=== PATIENT | female | born 1945 | race Caucasian/White ===

== ENCOUNTER 2022-11-18 18:33 | Inpatient (IN) | payer OTHER, MEDICARE ==
--- NOTE | 2022-11-18 19:38 | ED ---
General Adult HPI - General Chief complaint: Fall Stated complaint: fall Time Seen by Provider: 11/18/22 18:40 Source: patient, EMS, RN notes reviewed, old records reviewed Mode of arrival: EMS Limitations: no limitations - History of Present Illness Initial comments: This is a 69-year-old female presents emergency Department after she fell off the toilet. Patient states she went to go to the bathroom and sit down on the toilet she thought she was up but it was not and so she slid off the toilet between the tub in the toilet. Patient states she was caught there for about 8 hours and couldn't move. Patient's only complaint is right sided rib pains. Patient denies being on any blood thinners. Patient denies hitting her head or neck. Patient denies any difficulty breathing shortness of breath. Patient denies any extremity pain. Patient states she did note bruise on her right upper arm but she has full range of motion at all joints. - Related Data Home Medications Medication Instructions Recorded Confirmed FLUoxetine HCL [Sarafem] 20 mg PO DAILY 11/06/15 11/06/15 Ranitidine HCl 75 mg PO DAILY PRN 11/06/15 11/06/15 Previous Rx's Medication Instructions Recorded Aspirin EC [Ecotrin Low Dose] 81 mg PO DAILY #30 tablet. 11/09/15 Cephalexin [Keflex] 500 mg PO Q8HR #21 cap 11/09/15 Allergies Allergy/AdvReac Type Severity Reaction Status Date / Time Latex, Natural Rubber Allergy Rash/Hives Verified 11/18/22 18:41 janina Allergy Rash/Hives Verified 11/18/22 18:42 Review of Systems ROS Statement: Those systems with pertinent positive or pertinent negative responses have been documented in the HPI. ROS Other: All systems not noted in ROS Statement are negative. Past Medical History Past Medical History: Hypertension, Memory Impairment History of Any Multi-Drug Resistant Organisms: None Reported Past Surgical History: Cholecystectomy Additional Past Surgical History / Comment(s): 1979 Past Psychological History: Depression Smoking Status: Never smoker Past Alcohol Use History: None Reported Past Drug Use History: None Reported - Past Family History Mother Family Medical History: Congestive Heart Failure (CHF), COPD, Coronary Artery Disease (CAD), Hypertension, Myocardial Infarction ([place]), Neurologic Disorder General Exam - General Exam Comments Initial Comments: GENERAL: Patient is well-developed and well-nourished. Patient is nontoxic and well- hydrated and is in mild distress. ENT: Neck is soft and supple. No significant lymphadenopathy is noted. Oropharynx is clear. Moist mucous membranes. Neck has full range of motion without eliciting any pain. EYES: The sclera were anicteric and conjunctiva were pink and moist. Extraocular movements were intact and pupils were equal round and reactive to light. Eyelids were unremarkable. PULMONARY: Unlabored respirations. Good breath sounds bilaterally. No audible rales rhonchi or wheezing was noted. CARDIOVASCULAR: There is a regular rate and rhythm without any murmurs gallops or rubs. Patient has right lateral rib pain ABDOMEN: Soft and nontender with normal bowel sounds. SKIN: Contusion to the lateral upper right arm NEUROLOGIC: Patient is alert and oriented x3. Cranial nerves II through XII are grossly intact. Motor and sensory are also intact. Normal speech, volume and content. Symmetrical smile MUSCULOSKELETAL: Normal extremities with adequate strength and full range of motion. LYMPHATICS: No significant lymphadenopathy is noted PSYCHIATRIC: Normal psychiatric evaluation. Limitations: no limitations Course Vital Signs 11/18/22 11/18/22 18:37 20:33 Temperature 98 F Pulse Rate 86 85 Respiratory 20 16 Rate Blood Pressure 168/97 184/89 O2 Sat by Pulse 98 99 Oximetry Medical Decision Making - Medical Decision Making Was pt. sent in by a medical professional or institution (LUIS Douglas, SHREDDER/GRANULATOR OPERATOR, urgent care, hospital, or fci...) When possible be specific @ -No Did you speak to anyone other than the patient for history (EMS, parent, family, police, friend...)? What history was obtained from this source @ -No Did you review nursing and triage notes (agree or disagree)? Why? @ -I reviewed and agree with nursing and triage notes Were old charts reviewed (outside hosp., previous admission, EMS record, old EKG, old radiological studies, urgent care reports/EKG's, fci records)? Report findings @ -No old charts were reviewed Differential Diagnosis (chest pain, altered mental status, abdominal pain women, abdominal pain men, vaginal bleeding, weakness, fever, dyspnea, syncope, headache, dizziness, GI bleed, back pain, seizure, CVA, palpatations, mental health, musculoskeletal)? @ -Differential Musculoskeletal Muscular strain, contusion, ligament sprain, fracture, arthritis, septic arthritis, bursitis, cellulitis, muscle spasm, nerve compression, DVT, arterial occlusion, herpes zoster, electrolyte abnormality, tumor.... This is not meant to be in all inclusive list EKG interpreted by me (3pts min.). @ -As above X-rays interpreted by me (1pt min.). @ -Chest x-ray and rib films were interpreted by myself as he for rib fractures rib 5 rib 7 [address] interpreted by me (1pt min.). @ -None done U/S interpreted by me (1pt. min.). @ -None done What testing was considered but not performed or refused? (CT, X-rays, U/S, labs)? Why? @ -None What meds were considered but not given or refused? Why? @ -None Did you discuss the management of the patient with other professionals (professionals i.e. , PA, SHREDDER/GRANULATOR OPERATOR, lab, RT, psych nurse, transition social worker, produce laborer, teacher, resident medical officer, hospice case manager)? Give summary @ -I discussed the case with Dr. Gennaro Styles he agreed to admit the patient I would admit the patient I will consult anesthesia pulmonary and medical doctor Was smoking cessation discussed for >3mins.? @ -No Was critical care preformed (if so, how long)? @ -No Were there social determinants of health that impacted care today? How? (Homelessness, low income, unemployed, alcoholism, drug addiction, transportation, low edu. Level, literacy, decrease access to med. care, [facility] [facility], rehab)? @ -No Was there de-escalation of care discussed even if they declined (Discuss DNR or withdrawal of care, Hospice)? DNR status @ -No What co-morbidities impacted this encounter? (DM, HTN, Smoking, COPD, CAD, Cancer, CVA, ARF, Chemo, Hep., AIDS, mental health diagnosis, sleep apnea, morbid obesity)? @ -None Was patient admitted / discharged? Hospital course, mention meds given and route, prescriptions, significant lab abnormalities, going to OR and other pertinent info. @ -Multiple rib fractures were seen on the x-ray patient was in too much pain to go home I spoke with Dr. Duffy agreed to admit the patient minute the patient wrote admitting orders I consulted anesthesia pulmonary and Lluvia Undiagnosed new problem with uncertain prognosis? @ -No Drug Therapy requiring intensive monitoring for toxicity (Heparin, Nitro, Insulin, Cardizem)? @ -No Were any procedures done? @ -No Diagnosis/symptom? @ -Multiple rib fractures Acute, or Chronic, or Acute on Chronic? @ -Acute Uncomplicated (without systemic symptoms) or Complicated (systemic symptoms)? @ -Complicated Side effects of treatment? @ -No Exacerbation, Progression, or Severe Exacerbation? @ -No Poses a threat to life or bodily function? How? (Chest pain, [place], [place], pneumonia, PE, COPD, DKA, ARF, appy, cholecystitis, CVA, Diverticulitis, Homicidal, Suicidal, threat to staff... and all critical care pts) @ -No - Lab Data Result diagrams: 11/18/22 20:23 Lab Results 11/18/22 Range/Units 20:23 WBC 18.8 H (3.8-10.6) k/uL RBC 4.13 (3.80-5.40) m/uL Hgb 12.1 (11.4-16.0) gm/dL Hct 35.2 (34.0-46.0) % MCV 85.3 (80.0-100.0) fL MCH 29.3 (25.0-35.0) pg MCHC 34.3 (31.0-37.0) g/dL RDW 16.4 H (11.5-15.5) % Plt Count 254 (150-450) k/uL MPV 7.3 Neutrophils % 93 % Lymphocytes % 3 % Monocytes % 3 % Eosinophils % 0 % Basophils % 0 % Neutrophils # 17.5 H (1.3-7.7) k/uL Lymphocytes # 0.6 L (1.0-4.8) k/uL Monocytes # 0.6 (0-1.0) k/uL Eosinophils # 0.0 (0-0.7) k/uL Basophils # 0.0 (0-0.2) k/uL Poikilocytosis Slight Anisocytosis Slight Disposition Clinical Impression: Fall, Rib fractures Disposition: ADMITTED IP TO THIS HOSP Referrals: Shanti Pizarro DO [Primary Care Provider] - 1-2 days Time of Disposition: 20:54
[2022-11-18] MEDS ORDERED: HYDROmorphone 0.5 MG/0.5 ML SYRINGE IVP STA (20:14)
--- NOTE | 2022-11-18 20:18 | XR ---
EXAMINATION TYPE: XR ribs RT w pa chest xray DATE OF EXAM: 11/18/2022 8:08 PM INDICATION: Patient age:Female; 77 years old; Reason for study: Trauma; COMPARISON: 11/06/2015 TECHNIQUE: Frontal and oblique views of the right ribs with frontal chest radiograph. FINDINGS: Right lateral rib #5 cortical irregularity. Additional mildly displaced fracture seen throu gh right rib 7 through 9. Right midlung versus subcutaneous calcified granuloma present.. Increased i nterstitial lung markings throughout the lungs. IMPRESSION: 1. Multiple right-sided rib fractures including at least 5 and and was thought to be 7 through 9. 2. Underlying pulmonary fibrosis changes.
[2022-11-18 20:35] LABS: Anisocytosis Slight; Basophils % (A) 0 %; Eosinophils % (A) 0 %; HCT 35.2 % (34.0-46.0); HGB 12.1 gm/dL (11.4-16.0); Lymphocytes # (A) 0.6 k/uL (1.0-4.8); Lymphocytes % (A) 3 %; MCH 29.3 pg (25.0-35.0); MCHC 34.3 g/dL (31.0-37.0); MCV 85.3 fL (80.0-100.0); Mean Platelet Volume 7.3; Monocytes # (A) 0.6 k/uL (0-1.0); Monocytes % (A) 3 %; Neutrophils # (A) 17.5 k/uL (1.3-7.7); Neutrophils % (A) 93 %; Platelet Count 254 k/uL (150-450); Poikilocytosis Slight; RBC 4.13 m/uL (3.80-5.40); RDW 16.4 % (11.5-15.5); WBC 18.8 k/uL (3.8-10.6)
[2022-11-18 20:58] LABS: ALT 37 U/L (4-34); AST 79 U/L (14-36); African American GFR (CKD) >90 (>60 ml/min/1.73 sqM); Albumin 4.1 g/dL (3.5-5.0); Alkaline Phosphatase 104 U/L (38-126); Anion Gap 12 mmol/L; Blood Urea Nitrogen 20 mg/dL (7-17); Calcium 9.2 mg/dL (8.4-10.2); Carbon Dioxide 24 mmol/L (22-30); Chloride 105 mmol/L (98-107); Glucose 130 mg/dL (74-99); Non-African American GFR(CKD) 87 (>60 ml/min/1.73 sqM); Potassium 3.3 mmol/L (3.5-5.1); Sodium 141 mmol/L (137-145); Total Bilirubin 0.7 mg/dL (0.2-1.3); Total Protein 6.9 g/dL (6.3-8.2)
[2022-11-18] MEDS ORDERED: NALOXONE 0.4 MG/ML 1 ML VIAL IV PRN (20:58)
[2022-11-18 21:15] LABS: Creatine Kinase 1532 U/L (30-135)
[2022-11-18] MEDS ORDERED: SODIUM CHLORIDE 0.9% 1,000 ML IV ONE (21:29)
[2022-11-18] MEDS: MORPHINE SULFATE 2 MG/ML SYRINGE IVP PRN (23:25)
--- NOTE | 2022-11-19 03:26 | P.CNPUL ---
History of Present Illness Consult date: 11/19/22 Requesting physician: Casey Coker Reason for consult: abnormal CXR/CT, other Chief complaint: Fall with rib fracture History of present illness: I'm seeing this patient today 11/19/2022 in new consultation after a fall resulting in multiple rib fractures. This is a pleasant 77-year-old white female with past medical history of CHF, coronary artery disease, previous heart attack, hypertension. Patient denies any significant pulmonary history, and denies ever smoking. The patient states that while she was attempting to go to the bathroom and sit on the toilet she fell hitting her right chest on the edge of the bathtub. She states that she was trapped between the tub and toilet from 10 AM to 6 PM. She arrived in the emergency room yesterday evening. Patient's only complaint right now is right-sided chest pain. She denies any significant shortness of breath. Not on any anticoagulants. Chest x-ray done on arrival, showed multiple rib fractures including a right lateral fifth rib, and mildly displaced right ribs 7 through 9. No pneumothorax was seen. There were also some underlying interstitial lung markings seen throughout. Patient is currently sitting up in the bed, on room air, in no acute distress. Pain appears adequately controlled with when necessary IV morphine and Toradol. CBC on arrival showed an elevated WBC count of 18.8, hemoglobin 12.1, hematocrit 35.2, platelets 254,000. Patient's BMP on arrival shows sodium 141, potassium 3.1, chloride 105, serum CO2 24, BUN 20, creatinine 0.62, glucose 130. Patient's CK was mildly elevated 1532. She currently has normal saline infusing at 100 ML's per hour. Vital signs are stable. Review of Systems REVIEW OF SYSTEMS: CONSTITUTIONAL: Denies any recent significant weight loss or weight gain. EYES: Denies change in vision. EARS, NOSE, MOUTH, THROAT: Denies headaches, denies sore throat. CARDIOVASCULAR: Denies palpitations or syncopal episodes. Admits right lateral chest pain. RESPIRATORY: Denies shortness of breath, cough, congestion or hemoptysis. GASTROINTESTINAL: Denies change in appetite, abdominal pain, nausea and vomiting, or diarrhea GENITOURINARY: Denies hematuria, denies infections. MUSKULOSKELETAL: Denies pain, denies swelling. INTEGUMENTARY: Denies rash, denies eczema. NEUROLOGICAL: Denies recent memory loss, no recent seizure activity. PSYCHIATRIC: Denies anxiety, denies depression. HEMATOLOGIC/LYMPHATIC: Denies anemia, denies enlarged lymph node Past Medical History Past Medical History: Hypertension, Memory Impairment History of Any Multi-Drug Resistant Organisms: None Reported Past Surgical History: Cholecystectomy Additional Past Surgical History / Comment(s): 1979 Past Psychological History: Depression Smoking Status: Never smoker Past Alcohol Use History: None Reported Past Drug Use History: None Reported - Past Family History Mother Family Medical History: Congestive Heart Failure (CHF), COPD, Coronary Artery Disease (CAD), Hypertension, Myocardial Infarction ([place]), Neurologic Disorder Medications and Allergies Home Medications Medication Instructions Recorded Confirmed Type Ergocalciferol (Vitamin D2) 1,250 mcg PO WEEKLY 11/18/22 11/18/22 History [Drisdol (50,000 Iu)] FLUoxetine HCL [PROzac] 40 mg PO DAILY 11/18/22 11/18/22 History busPIRone HCL 5 mg PO BID 11/18/22 11/18/22 History timoloL maleate [timoloL maleate 1 applic BOTH EYES DAILY 11/18/22 11/18/22 History 0.25%] Allergies Allergy/AdvReac Type Severity Reaction Status Date / Time Latex, Natural Rubber Allergy Rash/Hives Verified 11/18/22 21:02 janina Allergy Rash/Hives Verified 11/18/22 21:02 Physical Exam Vitals: Vital Signs Temp Pulse Resp BP Pulse Ox 11/18/22 20:33 98 F 85 16 184/89 99 11/18/22 18:37 86 20 168/97 98 Intake and Output 11/18/22 11/18/22 11/19/22 14:59 22:59 06:59 Other: Weight 107.501 kg GENERAL EXAM: Alert, 77-year-old white female, morbidly obese, comfortable in no apparent distress. HEAD: Normocephalic and atraumatic EYES: Normal reaction of pupils, equal size. NOSE: Clear with pink turbinates. THROAT: No erythema or exudates. NECK: No masses, no JVD. CHEST: No chest wall deformity. There is some obvious ecchymosis of the right lateral chest, and grimacing to palpation. LUNGS: Equal air entry with no crackles, wheeze, rhonchi or dullness. On room air. No conversational dyspnea or accessory muscle use.. CVS: S1 and S2 normal with no audible murmur, regular rhythm. No extra heart sounds ABDOMEN: No hepatosplenomegaly, active bowel sounds, no guarding or rigidity. SPINE: No scoliosis or deformity SKIN: No rashes CENTRAL NERVOUS SYSTEM: No focal deficits, tone is normal in all 4 extremities. EXTREMITIES: There is no peripheral edema, clubbing, or cyanosis. Peripheral pulses are intact. Results - Laboratory Findings CBC and BMP: 11/18/22 20:23 11/18/22 20:23 Abnormal lab findings: Abnormal Labs 11/18/22 11/18/22 11/18/22 20:23 20:23 21:54 WBC 18.8 H RDW 16.4 H Neutrophils # 17.5 H Lymphocytes # 0.6 L Potassium 3.3 L BUN 20 H Glucose 130 H Plasma Lactic Acid Tadeo 2.6 H* AST 79 H ALT 37 H Creatine Kinase 1532 H* - Diagnostic Findings Chest x-ray: image reviewed Assessment and Plan Assessment: Fall resulting in multiple acute right sided rib fractures including the fifth and seventh through ninth ribs Rhabdomyolysis with a mildly elevated CK of 1532. Hypertension Coronary artery disease Never smoker. Plan: Patient's medications, labs, chest x-ray reviewed On room air Pain management Encourage incentive spirometer Continue IV hydration with normal saline, renal function is stable Increase activity as tolerated Anticipate discharge in the next 24 hours We will continue to follow I have personally seen and examined the patient, performed the documentation and the assessment and plan as written. Number of minutes spent on the visit:20 Time with Patient: Greater than 30
[2022-11-19] MEDS: MORPHINE SULFATE 2 MG/ML SYRINGE IVP PRN ×2 (04:26→13:56)
[2022-11-19] MEDS: SODIUM CHLORIDE 0.9% 1,000 ML IV SCH ×3 (04:59→18:03)
[2022-11-19 07:06] LABS: Anisocytosis Slight; Basophils % (A) 0 %; Eosinophils % (A) 0 %; HCT 33.8 % (34.0-46.0); HGB 11.2 gm/dL (11.4-16.0); Lymphocytes # (A) 0.5 k/uL (1.0-4.8); Lymphocytes % (A) 4 %; MCH 28.6 pg (25.0-35.0); MCHC 33.2 g/dL (31.0-37.0); MCV 86.1 fL (80.0-100.0); Mean Platelet Volume 7.5; Monocytes # (A) 0.5 k/uL (0-1.0); Monocytes % (A) 4 %; Neutrophils # (A) 12.1 k/uL (1.3-7.7); Neutrophils % (A) 91 %; Platelet Count 208 k/uL (150-450); Poikilocytosis Slight; RBC 3.93 m/uL (3.80-5.40); RDW 16.5 % (11.5-15.5); WBC 13.2 k/uL (3.8-10.6)
--- NOTE | 2022-11-19 07:49 | XR ---
EXAMINATION TYPE: XR chest 1V DATE OF EXAM: 11/19/2022 COMPARISON: 11/18/2022 HISTORY: Pain TECHNIQUE: Single frontal view of the chest is obtained. FINDINGS: Fractures not well seen in standard x-ray techniques. Hypertrophic arthropathy of the shou lders. Heart size normal with no obvious pneumothorax or consolidation. Left pleural effusion. IMPRESSION: COPD. No sizable pneumothorax. Right-sided rib fractures recently reported are poorly se en by standard x-ray.
[2022-11-19] MEDS: LIDOCAINE 5% PATCH TOPICAL SCH (08:42)
[2022-11-19 09:11] LABS: ALT 36 U/L (4-34); AST 67 U/L (14-36); African American GFR (CKD) >90 (>60 ml/min/1.73 sqM); Albumin 3.7 g/dL (3.5-5.0); Albumin/Globulin Ratio 1.4; Alkaline Phosphatase 93 U/L (38-126); Anion Gap 12 mmol/L; Blood Urea Nitrogen 17 mg/dL (7-17); Calcium 8.5 mg/dL (8.4-10.2); Carbon Dioxide 25 mmol/L (22-30); Chloride 102 mmol/L (98-107); Globulin 2.6 g/dL; Glucose 111 mg/dL (74-99); Non-African American GFR(CKD) 89 (>60 ml/min/1.73 sqM); Potassium 3.6 mmol/L (3.5-5.1); Sodium 139 mmol/L (137-145); Total Bilirubin 0.6 mg/dL (0.2-1.3); Total Protein 6.3 g/dL (6.3-8.2)
[2022-11-19] MEDS: KETOROLAC 15 MG/ML 1 ML VIAL IVP PRN ×2 (09:16→17:39)
[2022-11-19] MEDS: busPIRone HCl 5 MG TAB PO SCH ×2 (09:18→22:57)
[2022-11-19] MEDS ORDERED: ENOXAPARIN 100 MG/ML SYRINGE SQ SCH (09:45)
[2022-11-19] MEDS: FLUoxetine HCL 20 MG CAP PO SCH (12:12)
[2022-11-19] MEDS: ENOXAPARIN 40 MG/0.4 ML SYRINGE SQ SCH (12:17)
[2022-11-19] MEDS: PANTOPRAZOLE 40 MG/10 ML VIAL IVP SCH (12:17)
--- NOTE | 2022-11-19 12:34 | P.GSHP ---
History of Present Illness H&P Date: 11/19/22 CHIEF COMPLAINT: Fall HISTORY OF PRESENT ILLNESS: This is a 77-year-old female who percent ER after a fall at home. Apparently she fell from the toilet seat and landed between the bathtub and the toilet. Patient was stuck there for about 8 hours and couldn't move. Patient complains of right-sided rib pain. She denies shortness of breath. Denies any abdominal pain. Denies any nausea or vomiting. She had x- ray completed that showed evidence of right-sided rib fractures 5 and 7 through 9. She also has evidence of acute rhabdomyolysis. She reports her pain is controlled. She denies any loss of consciousness. She denies hitting her head. Patient was seen and examined in the ER with Dr. Burdikc. PAST MEDICAL HISTORY: Hypertension, memory impairment PAST SURGICAL HISTORY: Cholecystectomy MEDICATIONS: See below ALLERGIES: See below SOCIAL HISTORY: No illicit drug use. REVIEW OF SYSTEMS: CONSTITUTIONAL: Denies fever or chills. HEENT: Denies blurred vision, vision changes, or eye pain. Denies hemoptysis CARDIOVASCULAR: Denies chest pain or pressure. RESPIRATORY: No shortness of breath. GASTROINTESTINAL: See HPI for pertinent findings HEMATOLOGIC: Denies bleeding disorders. GENITOURINARY: Denies any blood in urine or increased urinary frequency. SKIN: Denies pruitis. Denies rash. PHYSICAL EXAM: VITAL SIGNS: Reviewed GENERAL: Well-developed in no acute distress. HEENT: No sclera icterus. Extraocular movements grossly intact. Moist buccal mucosa. Head is atraumatic, normocephalic. No nasal drainage. ABDOMEN: Soft. Obese. Nondistended. Nontender NEUROLOGIC: Alert and oriented. Cranial nerves II through XII grossly intact. LABORATORY DATA: WBC 18.8 down to 13.2 Hgb 11.2 platelets 208 Sodium 139 potassium 3.3-3.6 creatinine 0.57 Glucose 111 Lactic acid 2.6 up to 3.7 with a repeat of 1.2 Total bilirubin 0.6 AST 79 down to 67 ALT 37-36 CPK [id number] IMAGING: Rib and chest x-ray shows multiple right-sided rib fractures including at least 5 and 7 through 9. Underlying pulmonary fibrosis changes. Repeat chest x-ray for this morning shows a COPD. No sizable pneumothorax. Right-sided rib fractures recently reported are poorly seen by standard extra ASSESSMENT: 1. Fall with trauma to right ribs 2. Right-sided rib fractures including ribs 5 and 7 through 9 3. Acute rhabdomyolysis due to fall and prolonged time on ground 4. Elevated lactic acid level PLAN: -Continue supportive care -Continue IV fluids -Continue pain management -Pulmonary service consulted due to rib fractures -Consult medical service for medical management -Pain service consulted -Lidoderm patch and Halls added for pain control -Encouraged patient to use incentive spirometer -Consult PT OT -Consult oil field caser for possible ECF placement -GI prophylaxis Protonix and DVT prophylaxis Lovenox Physician Poultry Process Worker note has been reviewed by physician. Signing provider agrees with the documented findings, assessment, and plan of care. Past Medical History Past Medical History: Hypertension, Memory Impairment History of Any Multi-Drug Resistant Organisms: None Reported Past Surgical History: Cholecystectomy Additional Past Surgical History / Comment(s): 1979 Past Psychological History: Depression Smoking Status: Never smoker Past Alcohol Use History: None Reported Past Drug Use History: None Reported - Past Family History Mother Family Medical History: Congestive Heart Failure (CHF), COPD, Coronary Artery Disease (CAD), Hypertension, Myocardial Infarction ([place]), Neurologic Disorder Medications and Allergies Home Medications Medication Instructions Recorded Confirmed Type Ergocalciferol (Vitamin D2) 1,250 mcg PO WEEKLY 11/18/22 11/18/22 History [Drisdol (50,000 Iu)] FLUoxetine HCL [PROzac] 40 mg PO DAILY 11/18/22 11/18/22 History busPIRone HCL 5 mg PO BID 11/18/22 11/18/22 History timoloL maleate [timoloL maleate 1 applic BOTH EYES DAILY 11/18/22 11/18/22 History 0.25%] Allergies Allergy/AdvReac Type Severity Reaction Status Date / Time Latex, Natural Rubber Allergy Rash/Hives Verified 11/18/22 21:02 janina Allergy Rash/Hives Verified 11/18/22 21:02 Surgical - Exam Vital Signs Pulse Resp BP Pulse Ox 86 20 168/97 98 11/18/22 18:37 11/18/22 18:37 11/18/22 18:37 11/18/22 18:37 Results - Labs 11/19/22 06:15 11/19/22 06:15 Abnormal Lab Results - Last 24 Hours (Table) 11/18/22 11/18/22 11/18/22 Range/Units 20:23 20:23 21:54 WBC 18.8 H (3.8-10.6) k/uL Hgb (11.4-16.0) gm/dL Hct (34.0-46.0) % RDW 16.4 H (11.5-15.5) % Neutrophils # 17.5 H (1.3-7.7) k/uL Lymphocytes # 0.6 L (1.0-4.8) k/uL Potassium 3.3 L (3.5-5.1) mmol/L BUN 20 H (7-17) mg/dL Glucose 130 H (74-99) mg/dL Plasma Lactic Acid Tadeo 2.6 H* (0.7-2.0) mmol/L AST 79 H (14-36) U/L ALT 37 H (4-34) U/L Creatine Kinase 1532 H* (30-135) U/L 11/19/22 11/19/22 11/19/22 Range/Units 02:55 06:15 06:15 WBC 13.2 H (3.8-10.6) k/uL Hgb 11.2 L (11.4-16.0) gm/dL Hct 33.8 L (34.0-46.0) % RDW 16.5 H (11.5-15.5) % Neutrophils # 12.1 H (1.3-7.7) k/uL Lymphocytes # 0.5 L (1.0-4.8) k/uL Potassium (3.5-5.1) mmol/L BUN (7-17) mg/dL Glucose (74-99) mg/dL Plasma Lactic Acid Tadeo 2.1 H* 3.7 H* (0.7-2.0) mmol/L AST (14-36) U/L ALT (4-34) U/L Creatine Kinase (30-135) U/L 11/19/22 11/19/22 Range/Units 06:15 07:18 WBC (3.8-10.6) k/uL Hgb (11.4-16.0) gm/dL Hct (34.0-46.0) % RDW (11.5-15.5) % Neutrophils # (1.3-7.7) k/uL Lymphocytes # (1.0-4.8) k/uL Potassium (3.5-5.1) mmol/L BUN (7-17) mg/dL Glucose 111 H (74-99) mg/dL Plasma Lactic Acid Tadeo (0.7-2.0) mmol/L AST 67 H (14-36) U/L ALT 36 H (4-34) U/L Creatine Kinase 1387 H* (30-135) U/L Diabetes panel 11/18/22 11/19/22 Range/Units 20: 06:15 Sodium 141 139 (137-145) mmol/L Potassium 3.3 L 3.6 (3.5-5.1) mmol/L Chloride 105 102 (98-107) mmol/L Carbon Dioxide 24 25 (22-30) mmol/L BUN 20 H 17 (7-17) mg/dL Creatinine 0.62 0.57 (0.52-1.04) mg/dL Glucose 130 H 111 H (74-99) mg/dL Calcium 9.2 8.5 (8.4-10.2) mg/dL AST 79 H 67 H (14-36) U/L ALT 37 H 36 H (4-34) U/L Alkaline Phosphatase 104 93 (38-126) U/L Total Protein 6.9 6.3 (6.3-8.2) g/dL Albumin 4.1 3.7 (3.5-5.0) g/dL Calcium panel 11/18/22 11/19/22 Range/Units 20: 06:15 Calcium 9.2 8.5 (8.4-10.2) mg/dL Albumin 4.1 3.7 (3.5-5.0) g/dL Pituitary panel 11/18/22 11/19/22 Range/Units 20: 06:15 Sodium 141 139 (137-145) mmol/L Potassium 3.3 L 3.6 (3.5-5.1) mmol/L Chloride 105 102 (98-107) mmol/L Carbon Dioxide 24 25 (22-30) mmol/L BUN 20 H 17 (7-17) mg/dL Creatinine 0.62 0.57 (0.52-1.04) mg/dL Glucose 130 H 111 H (74-99) mg/dL Calcium 9.2 8.5 (8.4-10.2) mg/dL Adrenal panel 11/18/22 11/19/22 Range/Units 20:23 06:15 Sodium 141 139 (137-145) mmol/L Potassium 3.3 L 3.6 (3.5-5.1) mmol/L Chloride 105 102 (98-107) mmol/L Carbon Dioxide 24 25 (22-30) mmol/L BUN 20 H 17 (7-17) mg/dL Creatinine 0.62 0.57 (0.52-1.04) mg/dL Glucose 130 H 111 H (74-99) mg/dL Calcium 9.2 8.5 (8.4-10.2) mg/dL Total Bilirubin 0.7 0.6 (0.2-1.3) mg/dL AST 79 H 67 H (14-36) U/L ALT 37 H 36 H (4-34) U/L Alkaline Phosphatase 104 93 (38-126) U/L Total Protein 6.9 6.3 (6.3-8.2) g/dL Albumin 4.1 3.7 (3.5-5.0) g/dL
[2022-11-19] MEDS: TIMOLOL 0.25% OPHTH DROPS 5 ML BTL BOTH EYES SCH (12:45)
[2022-11-19] MEDS ORDERED: Potassium Replacement Protocol 1 EACH MISC MISCELLANE PRN (14:47)
--- NOTE | 2022-11-19 14:51 | P.CONS ---
History of Present Illness - Reason for Consult Consult date: 11/19/22 Medical management hypertension Requesting physician: Bill Burdick - Chief Complaint Fall, right-sided rib pain - History of Present Illness This is a 77-year-old female with morbid obesity, past medical history of hypertension, memory impairment and multiple others brought into the ER. EMS status post fall. Patient reports she was wearing her polyester pants, and the toilet lid was down; she dropped something attempted to reach over to pick it up and slid off the toilet. She fell between the toilet and the tub, hitting her right shoulder and ribs. Denies head trauma. Reports she was down for approximately 8 hours. CK 1532, decreased to 1387 with IV fluid hydration. Denies chest pain, palpitations or shortness of breath. Denies cough or congestion. Reports she has "mobility issues". States 10 years ago she sustained a significant fall, landing on her back and has had multiple falls since then. Reports she uses a walker. Afebrile, maintaining O2 sats in the high 90s to 100% on room air. WBC 18.8, decreases 13.2, hemoglobin 11.2, platelets 208, sodium 139, potassium 3.6, bicarb 25 BUN 17, creatinine 0.57. Blood sugars controlled. Lactic acid 2.6, 2.1, 3.7 and currently down to 1.2. T bili 0.6, AST 67, ALT 36. Review of Systems ROS Statement: Those systems with pertinent positive or pertinent negative responses have been documented in the HPI. ROS Other: All systems not noted in ROS Statement are negative. Past Medical History Past Medical History: Hypertension, Memory Impairment History of Any Multi-Drug Resistant Organisms: None Reported Past Surgical History: Cholecystectomy Additional Past Surgical History / Comment(s): 1979 Past Psychological History: Depression Smoking Status: Never smoker Past Alcohol Use History: None Reported Past Drug Use History: None Reported - Past Family History Mother Family Medical History: Congestive Heart Failure (CHF), COPD, Coronary Artery Disease (CAD), Hypertension, Myocardial Infarction (TN), Neurologic Disorder Medications and Allergies Home Medications Medication Instructions Recorded Confirmed Type Ergocalciferol (Vitamin D2) 1,250 mcg PO WEEKLY 11/18/22 11/18/22 History [Drisdol (50,000 Iu)] FLUoxetine HCL [PROzac] 40 mg PO DAILY 11/18/22 11/18/22 History busPIRone HCL 5 mg PO BID 11/18/22 11/18/22 History timoloL maleate [timoloL maleate 1 applic BOTH EYES DAILY 11/18/22 11/18/22 History 0.25%] Allergies Allergy/AdvReac Type Severity Reaction Status Date / Time Latex, Natural Rubber Allergy Rash/Hives Verified 11/18/22 21:02 janina Allergy Rash/Hives Verified 11/18/22 21:02 Physical Exam Vitals: Vital Signs Temp Pulse Resp BP Pulse Ox 11/19/22 09:09 93 18 117/70 93 L 11/19/22 08:00 83 18 116/83 97 11/19/22 04:40 83 18 137/87 100 11/19/22 03:17 80 18 168/101 97 11/18/22 20:33 98 F 85 16 184/89 99 11/18/22 18:37 86 20 168/97 98 Intake and Output 11/18/22 11/19/22 11/19/22 22:59 06:59 14:59 Other: Weight 107.501 kg PHYSICAL EXAM: VITAL SIGNS: As above GENERAL: Sitting up on stretcher, no acute distress HEENT: Conjunctivae normal. eyes normal. NECK: Supple, No JVD. No thyroid enlargement. No LNs CARDIOVASCULAR: S1, S2 regular. No murmur RESPIRATION: Breath sounds diminished in the bases. No rhonchi or crackles. No bronchial breathing. ABDOMEN: Soft, nontender . No guarding. no masses palpable. No ascites, No hepatosplenomegaly.Bowel sounds heard. LEGS: Positive edema/lymphedema-nonpitting PSYCHIATRY: Alert and oriented X3, mood and affect normal. NERVOUS SYSTEM: Cranial N 2-12 grossly normal. No focal deficits. Strength and sensation grossly intact.. Skin: Warm and dry, no rash Results CBC & Chem 7: 11/19/22 06:15 11/19/22 06:15 Labs: Abnormal Lab Results - Last 24 Hours (Table) 11/18/22 11/18/22 11/18/22 Range/Units 20:23 20:23 21:54 WBC 18.8 H (3.8-10.6) k/uL Hgb (11.4-16.0) gm/dL Hct (34.0-46.0) % RDW 16.4 H (11.5-15.5) % Neutrophils # 17.5 H (1.3-7.7) k/uL Lymphocytes # 0.6 L (1.0-4.8) k/uL Potassium 3.3 L (3.5-5.1) mmol/L BUN 20 H (7-17) mg/dL Glucose 130 H (74-99) mg/dL Plasma Lactic Acid Tadeo 2.6 H* (0.7-2.0) mmol/L AST 79 H (14-36) U/L ALT 37 H (4-34) U/L Creatine Kinase 1532 H* (30-135) U/L 11/19/22 11/19/22 11/19/22 Range/Units 02:55 06:15 06:15 WBC 13.2 H (3.8-10.6) k/uL Hgb 11.2 L (11.4-16.0) gm/dL Hct 33.8 L (34.0-46.0) % RDW 16.5 H (11.5-15.5) % Neutrophils # 12.1 H (1.3-7.7) k/uL Lymphocytes # 0.5 L (1.0-4.8) k/uL Potassium (3.5-5.1) mmol/L BUN (7-17) mg/dL Glucose (74-99) mg/dL Plasma Lactic Acid Tadeo 2.1 H* 3.7 H* (0.7-2.0) mmol/L AST (14-36) U/L ALT (4-34) U/L Creatine Kinase (30-135) U/L 11/19/22 Range/Units 06:15 WBC (3.8-10.6) k/uL Hgb (11.4-16.0) gm/dL Hct (34.0-46.0) % RDW (11.5-15.5) % Neutrophils # (1.3-7.7) k/uL Lymphocytes # (1.0-4.8) k/uL Potassium (3.5-5.1) mmol/L BUN (7-17) mg/dL Glucose 111 H (74-99) mg/dL Plasma Lactic Acid Tadeo (0.7-2.0) mmol/L AST 67 H (14-36) U/L ALT 36 H (4-34) U/L Creatine Kinase (30-135) U/L Assessment and Plan Assessment: Acute right-sided rib fractures, multiple, including at least 5; 7 through 9, status post traumatic fall Lactic acidosis Rhabdomyolysis, mild, downtime reported of 8 hours Gait dysfunction, history of multiple falls Hypertension Chronic lymphedema Depression Morbid obesity, 107.5 kg Plan: Continue on current medication regime ,monitoring and symptomatic treatment. IV fluid hydration, Pain management. Lovenox for DVT prophylaxis ordered. PPI for GI prophylaxis ordered. Aggressive pulmonary toileting with incentive spirometer reinforced. PT/OT consulted, discussed potential subacute rehab at discharge. Positive edema bilateral lower legs, appears chronic lymphedema, does not recall history of CHF, echo ordered. Repeat chest x-ray ordered. The impression and plan of care has been dictated as directed. : I performed a history and examination of this patient, discussed the same with the dictator. I agree with the dictator's note ,documented as a scribe. Any additional findings or plans will be noted.
[2022-11-19] MEDS: HYDROcodone/APAP 5-325MG 1 EACH TAB PO PRN (22:56)
[2022-11-20] MEDS: HYDROcodone/APAP 5-325MG 1 EACH TAB PO PRN ×3 (06:54→20:06)
[2022-11-20] MEDS: PANTOPRAZOLE 40 MG/10 ML VIAL IVP SCH (08:04)
[2022-11-20] MEDS: ENOXAPARIN 40 MG/0.4 ML SYRINGE SQ SCH (08:20)
[2022-11-20] MEDS: LIDOCAINE 5% PATCH TOPICAL SCH (08:20)
[2022-11-20] MEDS: busPIRone HCl 5 MG TAB PO SCH ×2 (08:21→20:05)
[2022-11-20] MEDS: FLUoxetine HCL 20 MG CAP PO SCH (08:21)
[2022-11-20] MEDS: SODIUM CHLORIDE 0.9% 1,000 ML IV SCH ×3 (09:07→20:09)
--- NOTE | 2022-11-20 09:57 | CA ---
Transthoracic Echo Report Name: Desiree Hendrix Age: 77 Gender: F : 1945 Exam Date: 11/19/2022 13:22 Exam Location: [facility] Ht (in): 64 Wt (lb): 237 Ordering Physician: Marcia Doan Attending/Referring Phys: Clinical Resource Director Annamarie Dsouza RDCS Procedure CPT: Indications: lv fx Cardiac Hx: Technical Quality: Fair Contrast 1: Total Dose (mL): Contrast 2: Total Dose (mL): MEASUREMENTS (Male / Female) Normal Values 2D ECHO LV Diastolic Diameter PLAX 4.8 cm 4.2 - 5.9 / 3.9 - 5.3 cm LV Systolic Diameter PLAX 3.3 cm IVS Diastolic Thickness 1.1 cm 0.6 - 1.0 / 0.6 - 0.9 cm LVPW Diastolic Thickness 1.1 cm 0.6 - 1.0 / 0.6 - 0.9 cm LV Relative Wall Thickness 0.5 RV Internal Dim ED PLAX 2.7 cm LA Systolic Diameter LX 3.8 cm 3.0 - 4.0 / 2.7 - 3.8 cm LA Volume 46.4 cm??? 18 - 58 / 22 - 52 cm??? M-MODE Aortic Root Diameter MM 2.9 cm MV E Point Septal Separation 0.9 cm AV Cusp Separation MM 1.9 cm DOPPLER AV Peak Velocity 172.4 cm/s AV Peak Gradient 11.9 mmHg MV Area PHT 3.4 cm??? Mitral E Point Velocity 98.2 cm/s Mitral A Point Velocity 95.5 cm/s Mitral E to A Ratio 1.0 MV Deceleration Time 221.7 ms MV E' Velocity 4.6 cm/s Mitral E to MV E' Ratio 21.3 TR Peak Velocity 258.7 cm/s TR Peak Gradient 26.8 mmHg Right Ventricular Systolic Press 31.2 mmHg FINDINGS Left Ventricle Left ventricular ejection fraction is estimated at 55-60 %. Left ventricular cavity size normal. Mild concentric left ventricular hypertrophy. No obvious regional wall motion abnormalities. Right Ventricle Normal right ventricular size and function. Right ventricular systolic pressure within normal limits. Right Atrium Normal right atrial size. Left Atrium Normal left atrial size. Mitral Valve Mitral valve thickened. Mild mitral annular calcification. Trace mitral regurgitation. Aortic Valve Trileaflet aortic valve. Aortic valve sclerosis. No aortic valve stenosis or regurgitation. Tricuspid Valve Structurally normal tricuspid valve. Mild tricuspid regurgitation. Pulmonic Valve Structurally normal pulmonic valve. No pulmonic regurgitation. Pericardium Normal pericardium. No pericardial effusion. Aorta Normal size aortic root and proximal ascending aorta. CONCLUSIONS Normal LV size and systolic function. Mild mitral annular calcification. Mild mitral and tricuspid regurgitation. No pericardial effusion. No pulmonary hypertension Previewed by: Dr. Nereida Power MD (Electronically Signed) Final Date: 20 November 2022 09:56
[2022-11-20] MEDS: TIMOLOL 0.25% OPHTH DROPS 5 ML BTL BOTH EYES SCH (11:11)
[2022-11-20 12:06] LABS: ALT 33 U/L (4-34); AST 52 U/L (14-36); African American GFR (CKD) >90 (>60 ml/min/1.73 sqM); Albumin 3.2 g/dL (3.5-5.0); Albumin/Globulin Ratio 1.3; Alkaline Phosphatase 89 U/L (38-126); Anion Gap 10 mmol/L; Blood Urea Nitrogen 17 mg/dL (7-17); Carbon Dioxide 23 mmol/L (22-30); Chloride 101 mmol/L (98-107); Globulin 2.5 g/dL; Glucose 144 mg/dL (74-99); Non-African American GFR(CKD) 89 (>60 ml/min/1.73 sqM); Potassium 3.6 mmol/L (3.5-5.1); Sodium 134 mmol/L (137-145); Total Bilirubin 0.9 mg/dL (0.2-1.3); Total Protein 5.7 g/dL (6.3-8.2)
[2022-11-20 12:47] LABS: Anisocytosis Slight; Basophils % (A) 0 %; Eosinophils % (A) 0 %; HCT 33.6 % (34.0-46.0); HGB 11.1 gm/dL (11.4-16.0); Lymphocytes # (A) 0.5 k/uL (1.0-4.8); Lymphocytes % (A) 4 %; MCH 28.6 pg (25.0-35.0); MCV 86.5 fL (80.0-100.0); Mean Platelet Volume 8.9; Monocytes # (A) 0.2 k/uL (0-1.0); Monocytes % (A) 2 %; Neutrophils # (A) 9.9 k/uL (1.3-7.7); Neutrophils % (A) 93 %; Platelet Count 158 k/uL (150-450); Poikilocytosis Slight; RBC 3.89 m/uL (3.80-5.40); RDW 16.3 % (11.5-15.5); WBC 10.7 k/uL (3.8-10.6)
--- NOTE | 2022-11-20 13:09 | P.PN ---
Subjective Progress Note Date: 11/20/22 I'm seeing this patient today 11/19/2022 in new consultation after a fall resulting in multiple rib fractures. This is a pleasant 77-year-old white female with past medical history of CHF, coronary artery disease, previous heart attack, hypertension. Patient denies any significant pulmonary history, and denies ever smoking. The patient states that while she was attempting to go to the bathroom and sit on the toilet she fell hitting her right chest on the edge of the bathtub. She states that she was trapped between the tub and toilet from 10 AM to 6 PM. She arrived in the emergency room yesterday evening. Patient's only complaint right now is right-sided chest pain. She denies any significant shortness of breath. Not on any anticoagulants. Chest x-ray done on arrival, showed multiple rib fractures including a right lateral fifth rib, and mildly displaced right ribs 7 through 9. No pneumothorax was seen. There were also some underlying interstitial lung markings seen throughout. Patient is currently sitting up in the bed, on room air, in no acute distress. Pain appears adequately controlled with when necessary IV morphine and Toradol. CBC on arrival showed an elevated WBC count of 18.8, hemoglobin 12.1, hematocrit 35.2, platelets 254,000. Patient's BMP on arrival shows sodium 141, potassium 3.1, chloride 105, serum CO2 24, BUN 20, creatinine 0.62, glucose 130. Patient's CK was mildly elevated 1532. She currently has normal saline infusing at 100 ML's per hour. Vital signs are stable. The patient is seen today 11/20/2022 in follow-up on the regular medical floor. She is currently sitting up at the bedside. Awake and alert in no acute distress. Denies any worsening shortness of breath, cough or congestion. Still with some right-sided chest discomfort with deep inhalation working with the incentive spirometer. Maintaining good O2 saturations in the 90s on room air. Afebrile. Hemodynamically stable. White count 10.7. Hemoglobin 11.1. Platelet count 158. Sodium 134. Potassium 3.6. Bicarb 23. BUN 17. Creatinine 0.58. Glucose 144. Remains on Lovenox for DVT prophylaxis. Objective - Vital Signs Vital signs: Vital Signs Temp 97.4 F L 11/20/22 08:00 Pulse 80 11/20/22 08:00 Resp 18 11/20/22 08:00 BP 139/79 11/20/22 08:00 Pulse Ox 96 11/20/22 08:00 FiO2 Intake & Output 11/19/22 11/20/22 11/20/22 18:59 06:59 18:59 Intake Total 800 Output Total 400 Balance 800 -400 Intake: Intake, IV Titration 800 Amount Sodium Chloride 0.9% 1, 800 000 ml @ 100 mls/hr IV . Q10H [facility] Rx#:[id number] Output: Urine 400 - Exam GENERAL EXAM: Alert, 77-year-old female, morbidly obese, on room air, comfortable in no apparent distress. HEAD: Normocephalic and atraumatic EYES: Normal reaction of pupils, equal size. NOSE: Clear with pink turbinates. THROAT: No erythema or exudates. NECK: No masses, no JVD. CHEST: No chest wall deformity. There is some obvious ecchymosis of the right lateral chest. LUNGS: Equal air entry with no crackles, wheeze, rhonchi or dullness. CVS: S1 and S2 normal with no audible murmur, regular rhythm. No extra heart sounds ABDOMEN: No hepatosplenomegaly, active bowel sounds, no guarding or rigidity. SPINE: No scoliosis or deformity SKIN: No rashes CENTRAL NERVOUS SYSTEM: No focal deficits, tone is normal in all 4 extremities. EXTREMITIES: There is no peripheral edema, clubbing, or cyanosis. Peripheral pulses are intact. - Labs CBC & Chem 7: 11/20/22 10:03 11/20/22 10:03 Labs: Abnormal Lab Results - Last 24 Hours (Table) 11/20/22 11/20/22 Range/Units 10:03 10:03 WBC 10.7 H (3.8-10.6) k/uL Hgb 11.1 L (11.4-16.0) gm/dL Hct 33.6 L (34.0-46.0) % RDW 16.3 H (11.5-15.5) % Neutrophils # 9.9 H (1.3-7.7) k/uL Lymphocytes # 0.5 L (1.0-4.8) k/uL Sodium 134 L (137-145) mmol/L Glucose 144 H (74-99) mg/dL Calcium 8.0 L (8.4-10.2) mg/dL AST 52 H (14-36) U/L Total Protein 5.7 L (6.3-8.2) g/dL Albumin 3.2 L (3.5-5.0) g/dL Assessment and Plan Assessment: Fall resulting in multiple acute right sided rib fractures including the fifth and seventh through ninth ribs Rhabdomyolysis with a mildly elevated CK of 1532. Hypertension Coronary artery disease Never smoker. Plan: The patient was seen and evaluated Remains stable and on room air Cleared for discharge from the pulmonary standpoint May need subacute rehabilitation according the patient and family Social work consult for discharge planning I have personally seen and examined the patient, performed the documentation and the assessment and plan as written. Number of minutes spent on the visit: 10.
--- NOTE | 2022-11-20 13:18 | P.PN ---
Subjective Progress Note Date: 11/20/22 - History of Present Illness This is a 77-year-old female with morbid obesity, past medical history of hypertension, memory impairment and multiple others brought into the ER. EMS s tatus post fall. Patient reports she was wearing her polyester pants, and the toilet lid was down; she dropped something attempted to reach over to pick it up and slid off the toilet. She fell between the toilet and the tub, hitting her right shoulder and ribs. Denies head trauma. Reports she was down for approximately 8 hours. CK 1532, decreased to 1387 with IV fluid hydration. Denies chest pain, palpitations or shortness of breath. Denies cough or congestion. Reports she has "mobility issues". States 10 years ago she sustained a significant fall, landing on her back and has had multiple falls since then. Reports she uses a walker. Afebrile, maintaining O2 sats in the high 90s to 100% on room air. WBC 18.8, decreases 13.2, hemoglobin 11.2, platelets 208, sodium 139, potassium 3.6, bicarb 25 BUN 17, creatinine 0.57. Blood sugars controlled. Lactic acid 2.6, 2.1, 3.7 and currently down to 1.2. T bili 0.6, AST 67, ALT 36. 11/20/2022 maintained on gentle IV fluid hydration, pain management and aggressive pulmonary toileting, maintaining O2 sats in the 90s on room air. Af ebrile, WBC 10.7. Denies cough, congestion or shortness of breath. Denies pain at rest, but reports rib cage pain with movement. Slept well, feels much better. Hemodynamically stable. Objective - Vital Signs Vital signs: Vital Signs Temp 97.4 F L 11/20/22 08:00 Pulse 80 11/20/22 08:00 Resp 18 11/20/22 08:00 BP 139/79 11/20/22 08:00 Pulse Ox 96 11/20/22 08:00 FiO2 Intake & Output 11/19/22 11/20/22 11/20/22 18:59 06:59 18:59 Intake Total 800 Output Total 400 Balance 800 -400 Intake: Intake, IV Titration 800 Amount Sodium Chloride 0.9% 1, 800 000 ml @ 100 mls/hr IV . Q10H [facility] Rx#:[id number] Output: Urine 400 - Exam PHYSICAL EXAM: VITAL SIGNS: As above GENERAL: Sitting upin bed, no acute distress HEENT: Conjunctivae normal. eyes normal. MMM. NECK: Supple, No JVD. CARDIOVASCULAR: S1, S2 regular. No murmur RESPIRATION: Equal air entry, Breath sounds diminished in the bases. No rhonchi or crackles. No wheezing. ABDOMEN: Soft, nontender . No guarding. no masses palpable. +BS. LEGS: Positive edema/lymphedema-nonpitting PSYCHIATRY: Alert and oriented X3, mood and affect normal. NERVOUS SYSTEM: Cranial N 2-12 grossly normal. No focal deficits. Strength and sensation grossly intact.. Skin: Warm and dry, no rash - Labs CBC & Chem 7: 11/20/22 10:03 11/20/22 10:03 Labs: Abnormal Lab Results - Last 24 Hours (Table) 11/20/22 11/20/22 Range/Units 10:03 10:03 WBC 10.7 H (3.8-10.6) k/uL Hgb 11.1 L (11.4-16.0) gm/dL Hct 33.6 L (34.0-46.0) % RDW 16.3 H (11.5-15.5) % Neutrophils # 9.9 H (1.3-7.7) k/uL Lymphocytes # 0.5 L (1.0-4.8) k/uL Sodium 134 L (137-145) mmol/L Glucose 144 H (74-99) mg/dL Calcium 8.0 L (8.4-10.2) mg/dL AST 52 H (14-36) U/L Total Protein 5.7 L (6.3-8.2) g/dL Albumin 3.2 L (3.5-5.0) g/dL Assessment and Plan Assessment: Acute right-sided rib fractures, multiple, including at least 5; 7 through 9, status post traumatic fall Lactic acidosis Rhabdomyolysis, mild, downtime reported of 8 hours Gait dysfunction, history of multiple falls Hypertension Chronic lymphedema Depression Morbid obesity, 107.5 kg Plan: Continue on current medication regime ,monitoring and symptomatic treatment. Significant clinical improvement. Cleared by pulmonary for disch arge. Medically cleared for discharge to subacute rehab. Pain management. Maintain aggressive pulmonary toileting with incentive spirometer reinforced. Follow-up with PCP 1 week after DC from subacute rehab. The impression and plan of care has been dictated as directed. : I performed a history and examination of this patient, discussed the same with the dictator. I agree with the dictator's note ,documented as a scribe. Any additional findings or plans will be noted.
--- NOTE | 2022-11-20 15:08 | P.PN ---
Subjective Progress Note Date: 11/20/22 CHIEF COMPLAINT: Fall with rib fractures HISTORY OF PRESENT ILLNESS: Patient reports pain with movement. She denies any nausea vomiting. She is tolerating diet. She complains that her urine is cloudy. Afebrile. On room air. WBC is 10.7 H is 11.1 platelets 158 sodium is 134 potassium 3.6 creatinine 0.58 patient seen by medicine service and pulmonary service and had been cleared for discharge. Awaiting insurance authorization for ECF placement. CPK level pending PHYSICAL EXAM: VITAL SIGNS: Reviewed. GENERAL: Well-developed in no acute distress. HEENT: No sclera icterus. Extraocular movements grossly intact. Moist buccal mucosa. Head is atraumatic, normocephalic. ABDOMEN: Soft. Nondistended. Nontender. NEUROLOGIC: Alert and oriented. Cranial nerves II through XII grossly intact. ASSESSMENT: 1. Fall with trauma to right ribs 2. Right-sided rib fractures including ribs 5 and 7 through 9 3. Acute rhabdomyolysis due to fall and prolonged time on ground 4. Elevated lactic acid level improved PLAN: -Continue pain management -Anticipate discharge to ECF tomorrow pending insurance authorization -Continue to work with PT OT -Continue pain management -Encouraged patient to use incentive spirometer -GI prophylaxis Protonix and DVT prophylaxis Lovenox Physician Ell Tutor note has been reviewed by physician. Signing provider agrees with the documented findings, assessment, and plan of care. Objective - Vital Signs Vital signs: Vital Signs Temp 97.4 F L 11/20/22 08:00 Pulse 80 11/20/22 08:00 Resp 18 11/20/22 08:00 BP 139/79 11/20/22 08:00 Pulse Ox 96 11/20/22 08:00 FiO2 Intake & Output 11/19/22 11/20/22 11/20/22 18:59 06:59 18:59 Intake Total 800 Output Total 400 Balance 800 -400 Intake: Intake, IV Titration 800 Amount Sodium Chloride 0.9% 1, 800 000 ml @ 100 mls/hr IV . Q10H [facility] Rx#:[id number] Output: Urine 400 - Labs CBC & Chem 7: 11/20/22 10:03 11/20/22 10:03 Labs: Abnormal Lab Results - Last 24 Hours (Table) 04/05/23 04/05/23 Range/Units 10:03 10:03 WBC 10.7 H (3.8-10.6) k/uL Hgb 11.1 L (11.4-16.0) gm/dL Hct 33.6 L (34.0-46.0) % RDW 16.3 H (11.5-15.5) % Neutrophils # 9.9 H (1.3-7.7) k/uL Lymphocytes # 0.5 L (1.0-4.8) k/uL Sodium 134 L (137-145) mmol/L Glucose 144 H (74-99) mg/dL Calcium 8.0 L (8.4-10.2) mg/dL AST 52 H (14-36) U/L Total Protein 5.7 L (6.3-8.2) g/dL Albumin 3.2 L (3.5-5.0) g/dL
[2022-11-20 18:41] LABS: Appearance,Urine Turbid (Clear); Bacteria,Urine Moderate /hpf; Bilirubin,Urine Negative (Negative); Blood,Urine Large (Negative); Color,Urine Yellow; Glucose,Urine (UA) Negative (Negative); Ketones,Urine Negative (Negative); Leukocyte Esterase,Urine Large (Negative); Mucus,Urine Few /hpf; Nitrite,Urine Negative (Negative); Protein,Urine 2+ (Negative); RBC,Urine 21 /hpf (0-5); Specific Gravity,Urine 1.021 (1.001-1.035); Squamous Epithelial Cell,Urine 7 /hpf (0-4); Urobilinogen,Urine <2.0 mg/dL (<2.0); WBC,Urine >182 /hpf (0-5)
[2022-11-20] MEDS: KETOROLAC 15 MG/ML 1 ML VIAL IVP PRN (20:05)
[2022-11-21] MEDS: HYDROcodone/APAP 5-325MG 1 EACH TAB PO PRN ×2 (02:34→07:46)
[2022-11-21] MEDS: SODIUM CHLORIDE 0.9% 1,000 ML IV SCH (06:15)
[2022-11-21 07:39] VITALS: RESP 17
[2022-11-21] MEDS: FLUoxetine HCL 20 MG CAP PO SCH (08:56)
[2022-11-21] MEDS: busPIRone HCl 5 MG TAB PO SCH (08:56)
[2022-11-21] MEDS: PANTOPRAZOLE 40 MG/10 ML VIAL IVP SCH (08:58)
[2022-11-21] MEDS: LIDOCAINE 5% PATCH TOPICAL SCH (08:58)
[2022-11-21] MEDS: ENOXAPARIN 40 MG/0.4 ML SYRINGE SQ SCH (08:59)
[2022-11-21] MEDS: TIMOLOL 0.25% OPHTH DROPS 5 ML BTL BOTH EYES SCH (09:03)
--- NOTE | 2022-11-21 11:38 | P.DS ---
Providers Date of admission: 11/18/22 20:58 Expected date of discharge: 11/21/22 Attending physician: Luis Armando Teixeira MD Consults: 11/18/22 20:58 Consult Physician Routine Consulting Provider: Asthma, Allergy, Emphysema Ctr Consult Reason/Comments: Pulmonary Contusion Do you want consulting provider notified?: Yes Consult to Anesthesia Routine Consulting Provider: Anesthesia,Services Consult Reason/Comments: Pain Management 11/19/22 07:49 Consult Physician Routine Consulting Provider: Luis Armando Teixeira Consult Reason/Comments: medical management Do you want consulting provider notified?: Yes 11/20/22 15:28 Consult Physician Routine Consulting Provider: Bill Burdick Consult Reason/Comments: rib fractures, fall Do you want consulting provider notified?: Already Contacted Primary care physician: Shanti Pizarro Hospital Course: Acute right-sided rib fractures, multiple, including at least 5; 7 through 9, status post traumatic fall Lactic acidosis, resolved Asymptomatic bacteriuria,culture pending Rhabdomyolysis, mild, downtime reported of 8 hours,improving Gait dysfunction, history of multiple falls Hypertension Chronic lymphedema Depression Morbid obesity, 107.5 kg Hospital course:This is a 77-year-old female with morbid obesity, past medical history of hypertension, memory impairment and multiple others brought into the ER. EMS status post fall. Patient reports she was wearing her polyester pants, and the toilet lid was down; she dropped something attempted to reach over to pick it up and slid off the toilet. She fell between the toilet and the tub, hitting her right shoulder and ribs. Denies head trauma. Reports she was down for approximately 8 hours. CK 1532, decreased to 1387 with IV fluid hydration. Denies chest pain, palpitations or shortness of breath. Denies cough or congestion. Reports she has "mobility issues". States 10 years ago she sustained a significant fall, landing on her back and has had multiple falls since then. Reports she uses a walker. Afebrile, maintaining O2 sats in the high 90s to 100% on room air. WBC 18.8, decreases 13.2, hemoglobin 11.2, platelets 208, sodium 139, potassium 3.6, bicarb 25 BUN 17, creatinine 0.57. Blood sugars controlled. Lactic acid 2.6, 2.1, 3.7 and currently down to 1.2. T bili 0.6, AST 67, ALT 36. 11/20/2022 maintained on gentle IV fluid hydration, pain management and aggressive pulmonary toileting, maintaining O2 sats in the 90s on room air. Afebrile, WBC 10.7. Denies cough, congestion or shortness of breath. Denies pain at rest, but reports rib cage pain with movement. Slept well, feels much better. Hemodynamically stable. Significant clinical improvement. Isolated fever during the night, denies chills or sweats last night. Recent WBC from 11/20/2022, 10.7. UA with moderate bacteria, large leukocytes, negative nitrates. Urine culture in progress. Denies dysuria. No suprapubic tenderness. Reports voiding without difficulty. At this time do not recommend any antibiotic will continue to monitor for further fevers or symptoms. Denies chest pain, palpitations or shortness of breath. Able to deep breathe. Maintaining O2 sats in the mid to high 90s on room air. Patient will be discharged today to subacute rehab in a stable condition with guarded prognosis. The impression and plan of care has been dictated as directed. : I performed a history and examination of this patient, discussed the same with the dictator. I agree with the dictator's note ,documented as a scribe. Any additional findings or plans will be noted. Patient Condition at Discharge: Stable Plan - Discharge Summary New Discharge Prescriptions: New Lidocaine 5% Patch [Lidoderm 5% Patch] 1 patch TOPICAL DAILY patch HYDROcodone/APAP 5-325MG [[place] 5-325] 1 each PO Q6H PRN #12 tab PRN Reason: Pain Pantoprazole [Protonix] 40 mg PO DAILY #30 tab Continue timoloL maleate [timoloL maleate 0.25%] 1 applic BOTH EYES DAILY busPIRone HCL 5 mg PO BID FLUoxetine HCL [PROzac] 40 mg PO DAILY Ergocalciferol (Vitamin D2) [Drisdol (50,000 Iu)] 1,250 mcg PO WEEKLY Discharge Medication List Ergocalciferol (Vitamin D2) [Drisdol (50,000 Iu)] 1,250 mcg PO WEEKLY 11/18/22 [History] FLUoxetine HCL [PROzac] 40 mg PO DAILY 11/18/22 [History] busPIRone HCL 5 mg PO BID 11/18/22 [History] timoloL maleate [timoloL maleate 0.25%] 1 applic BOTH EYES DAILY 11/18/22 [History] HYDROcodone/APAP 5-325MG [[place] 5-325] 1 each PO Q6H PRN #12 tab 11/21/22 [Rx] Lidocaine 5% Patch [Lidoderm 5% Patch] 1 patch TOPICAL DAILY patch 11/21/22 [Rx] Pantoprazole [Protonix] 40 mg PO DAILY #30 tab 11/21/22 [Rx] Follow up Appointment(s)/Referral(s): Luis Armando Teixeira MD [STAFF PHYSICIAN] - 1 Week Activity/Diet/Wound Care/Special Instructions: ANTONIO: IS q1hour X 10 while awake CBC,BMP in 3 days Discharge Disposition: TRANSFER TO SNF/ECF
--- NOTE | 2022-11-21 12:45 | P.PN ---
Progress Note - Text Progress Note Date: 11/21/22 The patient still has some complaints of chest wall pain. Apparently she is being discharged per the medical service. On exam vital signs are still. Abdomen soft nontender History of fall with multiple rib fractures. Patient will continue supportive care. No surgical intervention is planned.
--- NOTE | 2022-11-21 14:53 | P.PN ---
Progress Note - Text Progress Note Date: 11/21/22 Ms. Hendrix is a pleasant 77 year old female seen at the bed side. She is getting ready to transfer to rehab. Recommended to continue incentive spectrometry, and conservative treatment.
[2022-11-21 14:55] VITALS: BP 163/70; PULSE 74; TEMP 98.6
== END 2022-11-21 15:38 | DRG 184 ==
LOC: EC 18:33 → 4SSUR 20:58
PROVIDERS: ADMIT Family Medicine; ATTEND Family Medicine
DX: S22.41XA Multiple fractures of ribs, right side, initial encounter for closed fracture (principal); E87.20 Acidosis, unspecified; Z68.41 Body mass index [BMI] 40.0-44.9, adult; I11.0 Hypertensive heart disease with heart failure; I50.9 Heart failure, unspecified; E66.01 Morbid (severe) obesity due to excess calories; F32.A Depression, unspecified; B96.20 Unspecified Escherichia coli [E. coli] as the cause of diseases classified elsewhere; R82.71 Bacteriuria; I89.0 Lymphedema, not elsewhere classified; T79.6XXA Traumatic ischemia of muscle, initial encounter; I25.10 Atherosclerotic heart disease of native coronary artery without angina pectoris; R26.9 Unspecified abnormalities of gait and mobility; R29.6 Repeated falls; W18.11XA Fall from or off toilet without subsequent striking against object, initial encounter; Y92.002 Bathroom of unspecified non-institutional (private) residence as the place of occurrence of the external cause; I25.2 Old myocardial infarction; Z91.018 Allergy to other foods; Z91.040 Latex allergy status; Z79.899 Other long term (current) drug therapy; Z79.82 Long term (current) use of aspirin; Z91.81 History of falling
CPT/HCPCS: 36415; 71045; 80053; 81001; 82550; 83605; 85025; 87077; 87086; 87186; 93306; 96361; 96372; 96374; 96375; 96376; 99285

== ENCOUNTER → 2024-04-27 | Outpatient (CLI) | payer OTHER ==
--- NOTE | 2024-04-29 18:57 | MM ---
Reason for Exam: Screening (asymptomatic). Last mammogram was performed 1 year(s) and 10 month(s) ago. Patient History: Menarche at age 13. First Full-Term at age 34. Late child-bearing (after 30). Postmenopausal. Risk Values: Estela 5 year model risk: 2.1%. NCI Lifetime model risk: 3.2%. Prior Study Comparison: 09/28/2020 Bilateral Screening Mammogram, [facility]. 06/28/2022 Bilateral Screening Mammogram, [facility]. Tissue Density: There are scattered areas of fibroglandular density. Findings: Analyzed By CAD. Chronic nodularity on both sides. There is no suspicious group of microcalcifications or new suspicious mass in either breast. Overall Assessment: Benign, BI-RAD 2 Management: Screening Mammogram of both breasts in 1 year. . Patient should continue monthly self-breast exams. A clinical breast exam by your physician is recommended on an annual basis. This exam should not preclude additional follow-up of suspicious palpable abnormalities. Note on Estela scores and lifetime risk: 1. A Estela score greater than 3% is considered moderate risk. If this is the case, consider specialist referral to assess eligibility for a risk reducing agent. 2. If overall lifetime risk for the development of breast cancer is 20% or higher, the patient may qualify for future screening with alternating mammogram and breast MRI. Electronically signed and approved by: Paramjit Prince M.D. Radiologist
== END | disposition home or self-care (01) ==
LOC: RADMAMWWP 10:19
PROVIDERS: ATTEND Family Medicine
DX: Z12.31 Encounter for screening mammogram for malignant neoplasm of breast
CPT/HCPCS: 77063; 77067